=== PATIENT | female | born 1965 | race Caucasian/White ===

== ENCOUNTER 2024-08-13 10:22 | Emergency (ER) | payer BC, SELFPAY ==
[2024-08-13 10:23] VITALS: BP 131/86
--- NOTE | 2024-08-13 10:48 | ED.GENMED ---
History of Present Illness
General
Chief Complaint: Back Pain
Source: patient
Exam Limitations: none
Time Seen by Provider: 08/13/24 10:41
Nursing documentation reviewed up to this point in time: agreed with
History of Present Illness
History of Present Illness:
58 y/o F with h/o hypothyoid
history of lumbar djd
placed 1 year old grandson on the ground yesterday and felt immediate pain L lumbar region nonradiating
now stiffness
she has similar history of same in the past
no numbness/tinglin/weakness
no incontinence
no fever
no ivda
pt has had PT in the past which helps
sees Dr Hoskins
no mri
but has had previous back xrays within the [facility]
usually does well with steroids, muscle relaxant, nsaids
Past History
Past History
ED Past Medical History: Hypothyroidism
ED Past Surgical History: None
Social History
Tobacco: Non-smoker
Alcohol: None
Review of Systems
Review of Systems
Allergies reviewed?: Yes
All Other Systems: Not applicable
Phy Exam
Physical Exam
Physical Exam:
GENERAL: Alert , in no apparent distress, comfortable at rest
HEAD: NCAT
NECK: no midline tenderness, active ROM intact, no paraspinal muscle tenderness;
CARDIAC: Regular rate and rhythm, no edema
LUNGS: Clear breath sounds bilaterally, no acute respiratory distress, no wheezes/rales/rhonchi
ABDOMEN: Soft, without focal tenderness, no r/g, no cvat, normal bowel sounds, nondistended
NEUROLOGICAL: Alert and oriented, no focal neuro deficits, CN intact, 5/5 strength, sensation intact, slow-moving but able to ambulate
SKIN: Warm and dry,
MUSCULOSKELETAL: No edema, well perfused.
Patient has no tenderness to palpation of the hip, no SI joint tenderness
Back: No malalignment, tender just lateral to the midline on the left lumbar region along L4-L5 region, limited painful range of motion, normal strength and sensation, negative straight leg raise
PSYCH: Normal and appropriate interaction.
Course
Orders/Labs/Results
Orders:
Orders
08/13/24 10:48
Acetaminophen [Tylenol] 1,000 mg PO NOW STA
Cyclobenzaprine HCl [Flexeril] 10 mg PO NOW STA
Prednisone [Deltasone] 50 mg PO NOW STA
Vital Signs
Initial and Last Documented VS:
Initial Vital Signs
Temp Pulse Resp BP Pulse Ox
98.5 F 78 16 131/86 98
08/13/24 10:23 08/13/24 10:23 08/13/24 10:23 08/13/24 10:23 08/13/24 10:23
Last Documented Vital Signs
Temp Pulse Resp BP Pulse Ox
98.5 F 78 16 131/86 98
08/13/24 10:23 08/13/24 10:23 08/13/24 10:23 08/13/24 10:23 08/13/24 10:23
MDM/Problems Addressed
Differential Diagnosis Includes:
Lumbar strain, lumbar spasm
MDM/Problems Addressed:
58-year-old female with a history of previous lower back pain with flareups treated conservatively with physical therapy and meds presents after setting her grandson down on the ground yesterday and feeling suddenly like she pulled muscles in her
back. It is nonradiating left lower back pain. She feels tight. She is not having any numbness tingling or weakness in her legs, no urinary incontinence. No fever. She tried NSAIDs yesterday and this morning, took 3 Advil at 6 AM without
relief. Pain is worse with movement.
On exam she is seated upright, has moderate tenderness of the paraspinal muscles of the lumbar region, no SI joint tenderness, negative straight leg raise, normal strength and sensation distally. Her exam is consistent with lumbar strain and spasm.
She has had previous x-rays within the last year or 2 which have been consistent with DJD.
No red flag symptoms. Will initiate course of steroids, muscle relaxers, Tylenol, follow-up with spine
*Critical Care Note
Total Time (30-74mins, 75-104mins- exclusive of procedures): Not Applicable
ED Attending Note
-
Portions of this chart may have been created with voice recognition software.� Occasional wrong word or��sound alike� substitutions may have occurred due to the inherent limitations of voice recognition software.
Discharge Plan
Departure
Patient Disposition: Home (Routine Discharge)
Date of Disposition: 08/13/24
Time of Disposition: 11:00
Patient with high blood pressure during this ER visit?: No
Condition: Fair
Covid-19: Not Applicable
Discharge Problem:
Acute lumbar myofascial strain
Instructions: Low Back Pain (DC)
Prescriptions:
New
cyclobenzaprine 10 mg tablet
10 mg PO TIDPRN PRN (Reason: muscle spasm) Qty: 15 0RF
prednisone 50 mg tablet
50 mg PO DAILY Qty: 4 0RF
Referrals:
Leroy Darling, DO [Family Provider] - Follow up in 5-7 days
Activity Restrictions/Additional Instructions:
Take the prednisone once a day starting tomorrow. You can use Tylenol 1000 mg 2-3 times a day as needed for pain. If you need to take additional pain medication you can take 1 dose of ibuprofen 600 mg. We do not like you to take additional doses
of NSAIDs while on steroids. You can use muscle relaxer, cyclobenzaprine 10 mg up to 3 times a day as needed though this will make you drowsy. Some people just choose to use it once or twice a day.
Apply heat to your back. You can also use topical lidocaine patches. Return to the ER for severe worsening of symptoms like inability to walk, fever, leg weakness or numbness, incontinence of urine or any concerns. Otherwise follow-up with Dr. Hoskins
Interventions
Interventions:
*Risk Screen - Suicide Last Done: 08/13/24 10:23
*General Assessment Last Done: 08/13/24 10:23
*Neglect/Abuse Screening Last Done: 08/13/24 10:23
*ED COVID-19 Vaccine History Last Done: 08/13/24 10:23
Discharge Date and Time
Print Language: CHADIAN
[2024-08-13] MEDS: FLEXERIL 10 MG PO (11:15)
[2024-08-13] MEDS: DELTASONE 50 MG PO (11:15)
[2024-08-13] MEDS: TYLENOL 1000 MG PO (11:15)
== END 2024-08-13 11:35 | disposition home or self-care (01) ==
LOC: EMR 10:22
PROVIDERS: EMERGENCY PHYSICIAN Student in an Organized Health Care Education/Training Program; FAMILY PHYSICIAN Family Medicine
DX: S39.012A Strain of muscle, fascia and tendon of lower back, initial encounter (principal); X58.XXXA Exposure to other specified factors, initial encounter; M47.816 Spondylosis without myelopathy or radiculopathy, lumbar region; E03.9 Hypothyroidism, unspecified; L40.50 Arthropathic psoriasis, unspecified
CPT/HCPCS: 99283

== ENCOUNTER 2025-06-16 15:47 | Emergency (ER) | payer BC, SELFPAY ==
[2025-06-16 15:52] VITALS: BP 135/87
[2025-06-16 16:15] VITALS: BMI 25.3
--- NOTE | 2025-06-16 17:20 | ED.GENMED ---
History of Present Illness
General
Chief Complaint: Skin Surface Trauma
Source: patient
Exam Limitations: none
Time Seen by Provider: 06/16/25 16:17
Nursing documentation reviewed up to this point in time: agreed with
History of Present Illness
History of Present Illness:
59-year-old female presenting to the emergency department with a small skin avulsion of the distal left pinky finger while cutting veggies prior to arrival. Denies additional symptoms but has had some ongoing bleeding. She initially rinsed this at
home. She is unsure when her last tetanus shot was.
Past History
Past History
ED Past Medical History: Hypothyroidism
ED Past Surgical History: None
Social History
Tobacco: Non-smoker
Alcohol: None
Review of Systems
Review of Systems
Allergies reviewed?: Yes
All Other Systems: ROS reviewed and negative except as documented in HPI and ROS
Phy Exam
Physical Exam
Physical Exam:
GENERAL: Alert , in no apparent distress
EYE: pupils equal and reactive
NECK: Supple, no significant adenopathy.
ENT: o/p clr, mmm.
CARDIAC: Regular rate and rhythm .
LUNGS: Clear breath sounds bilaterally, no acute respiratory distress, no wheezes/rales/rhonchi
ABDOMEN: Soft, without focal tenderness, no r/g, no cvat
NEUROLOGICAL: Alert and oriented, no focal neuro deficits
SKIN: Distal skin avulsion of the distal tuft of the left pinky finger. To the dermal layer, warm and dry, skin intact.
MUSCULOSKELETAL: No edema, well perfused.
PSYCH: Normal and appropriate interaction.
Course
Orders/Labs/Results
Orders:
Orders
06/16/25 17:19
Tetanus/Diphth/Acelpertussis [Adacel] 0.5 ml IM .ONCE ONE
Vital Signs
Initial and Last Documented VS:
Initial Vital Signs
Pulse Resp BP Pulse Ox
89 18 135/87 100
06/16/25 15:52 06/16/25 15:52 06/16/25 15:52 06/16/25 15:52
Last Documented Vital Signs
Pulse Resp BP Pulse Ox
89 18 135/87 100
06/16/25 15:52 06/16/25 15:52 06/16/25 15:52 06/16/25 15:52
Procedures
Laceration Closure
Left Distal Palmar Fifth Finger:
Status of Wound: clean
Size of Wound in cm: 1
Description of Wound Edges: other (Skin avulsion)
Preparation: cleaned with saline
Revision/Debridement: routine- no revision and irrigate-direct pressure
Wound exploration: explored to base- no FB and no tendon involvement
Type of Closure: Dermabond-skin glue
MDM/Problems Addressed
MDM/Problems Addressed:
51-year-old female presenting to the emergency department today with concerns of a skin avulsion to the left distal pinky finger. This was cleaned thoroughly and closed with Dermabond to control bleeding otherwise stable for discharge. Given
updated tetanus shot. Low risk of infection. Return precautions given.
*Pulse Oximetry
SaO2: 100
Oxygen Mode of Delivery: Room air
Patient hypoxic: no (100)
*Critical Care Note
Total Time (30-74mins, 75-104mins- exclusive of procedures): Not Applicable
ED Attending Note
-
Portions of this chart may have been created with voice recognition software.� Occasional wrong word or��sound alike� substitutions may have occurred due to the inherent limitations of voice recognition software.
Discharge Plan
Departure
Patient Disposition: Home (Routine Discharge)
Date of Disposition: 06/16/25
Time of Disposition: 17:21
Patient with high blood pressure during this ER visit?: No
Condition: Good
Covid-19: Not Applicable
Discharge Problem:
Avulsion of skin of finger
Instructions: Laceration Repair With Glue (DC)
Prescriptions:
No Action
cyclobenzaprine 10 mg tablet
10 mg PO TIDPRN PRN (Reason: muscle spasm) Qty: 15 0RF
prednisone 50 mg tablet
50 mg PO DAILY Qty: 4 0RF
Referrals:
Leroy Darling, DO [Family Provider, Family Practice]
Activity Restrictions/Additional Instructions:
You came to the emergency department today with concerns of a skin avulsion. This was closed with Dermabond to control bleeding. Return for any worsening, new or concerning symptoms.
Interventions
Interventions:
*Risk Screen - Suicide Last Done: 06/16/25 15:54
*General Assessment Last Done: 06/16/25 16:16
*Neglect/Abuse Screening Last Done: 06/16/25 15:54
*ED- Fall Risk Assessment Last Done: 06/16/25 16:16
*ED COVID-19 Vaccine History Last Done: 06/16/25 16:16
ED-Skin Assessment Last Done: 06/16/25 16:36
Discharge Date and Time
Print Language: ROMANSH
[2025-06-16] MEDS: ADACEL 0.5 ML IM (17:29)
[2025-06-16 17:32] VITALS: BP 145/82
== END 2025-06-16 17:30 | disposition home or self-care (01) ==
LOC: EMR 15:47
PROVIDERS: EMERGENCY PHYSICIAN Emergency Medicine; FAMILY PHYSICIAN Family Medicine
DX: S61.207A Unspecified open wound of left little finger without damage to nail, initial encounter (principal); W26.0XXA Contact with knife, initial encounter; Y93.G9 Activity, other involving cooking and grilling; E03.9 Hypothyroidism, unspecified; Z23 Encounter for immunization
CPT/HCPCS: 90471; 12001; 99282; 90715